=== PATIENT | female | born 1990 | race Caucasian/White ===

== ENCOUNTER 2023-12-11 12:59 | Emergency (ER) | payer OTHER, SELFPAY ==
[2023-12-11 13:14] VITALS: BP 111/70; PULSE 95; RESP 16; TEMP 36.6; O2SAT 100
--- NOTE | 2023-12-11 13:14 | ED.WOUNDLAC ---
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 Patient reports that her tetanus is not up to date. Patient had applied band-aide to site prior to arrival.Patient is able to move all fingers without difficulty, strong right radial pulse. Onset (ago): minute(s) (prior to arrival) Location: other (right dorsal hand) Place: work Patient tetanus UTD: No Treatments prior to arrival: bandage Related Data Allergies Allergy/AdvReac Type Severity Reaction Status Date / Time No Known Allergies Allergy Verified 12/11/23 13:16 Review of Systems Review of Systems: CONSTITUTIONAL: Denies fever, chills, or sweats. CARDIOVASCULAR: Denies chest pain, palpitations, or edema. RESPIRATORY: Denies cough or dyspnea. SKIN: Reports laceration to the dorsal aspect of her right hand with bleeding controlled MUSCULOSKELETAL: Denies musculoskeletal pain NEUROLOGIC: Denies numbness, or weakness. All systems reviewed & are unremarkable except as noted in HPI and below PMFSH Social History Social History (Updated 12/12/23 @ 08:37 by Tawnya Champagne NP) Smoking status: Never smoker Alcohol intake: current Alcohol use details: social rare Substance use type: does not use Living arrangements: with family Gender identity (if verbalized by the patient): Female Comments At time of signature, agree with nursing past medical, surgical, social and family history. There is no relevant family history pertinent to the presenting complaint Exam Narrative: GENERAL: Well-appearing, well-nourished, and in no acute distress. HEAD: Normocephalic, atraumatic. NECK: Supple.no lymphadenopathy CHEST: Clear to auscultation. No respiratory distress.SAO2 100% on room air HEART: Regular rate and rhythm. No murmur heard. Normal peripheral pulses. EXTREMITIES: Normal range of motion. No edema. SKIN: Warm, dry, no rash. Reports 2cm linear laceration to the distal dorsal aspect of her right hand above 4th and 5th knuckles, bleeding controlled, see procedure note NEURO: No focal deficits. Alert and oriented x3. Course Course Level of Care: Express Care Visit Vital Signs Vital signs: Vital Signs Temperature 36.6 C 12/11/23 13:14 Pulse Rate 95 12/11/23 13:14 Respiratory Rate 16 12/11/23 13:14 Blood Pressure 111/70 12/11/23 13:14 Pulse Oximetry 100 12/11/23 13:14 Oxygen Delivery Room Air 12/11/23 13:14 Temperature 36.6 C 12/11/23 13:14 Pulse Rate 95 12/11/23 13:14 Respiratory Rate 16 12/11/23 13:14 Blood Pressure 111/70 12/11/23 13:14 Pulse Oximetry 100 12/11/23 13:14 Oxygen Delivery Room Air 12/11/23 13:14 Procedures Laceration hand: Date: 12/11/23 Time: 13:40 Site: hand Side (If applicable): right Size (cm): 2 Description: linear Depth: simple, single layer Local Anesthetic: lidocaine 1% Amount of anesthesia used (mL): 4 Pre-repair: irrigated extensively and other (cleansed with antibacterial wound cleanser) ====== Skin Level ====== Skin layer closed with: nylon Size (cm): 4-0 Number of sutures: 5 Technique: simple, interrupted ====== Subcutaneous Layer ====== ====== Muscle Layer ====== ====== Tendon Layer ====== Dressing: wound of right distal dorsal hand irrigated and cleansed with a
[2023-12-11] MEDS: TETANUS,DIPHTHERIA,AC PERTUSSIS ADULT (0.5 ML) BOOSTRIX IM (13:55)
== END 2023-12-11 14:01 | disposition home or self-care (01) ==
PROVIDERS: Emergency Provider Registered Nurse
DX: S61.411A Laceration without foreign body of right hand, initial encounter (principal); W29.8XXA Contact with other powered hand tools and household machinery, initial encounter; Z23 Encounter for immunization
CPT/HCPCS: 12001; 90471; 90715; 99203; G0463